=== PATIENT | female | born 1980 | race Caucasian/White ===

== ENCOUNTER → 2021-06-17 10:05 | Outpatient (BNVA) | payer MEDICAID, SELFPAY | PROVIDERS: Visit Provider Family Medicine | DX: E11.9 Type 2 diabetes mellitus without complications (principal); Z87.19 Personal history of other diseases of the digestive system; Z13.6 Encounter for screening for cardiovascular disorders; J44.9 Chronic obstructive pulmonary disease, unspecified; M51.36 Other intervertebral disc degeneration, lumbar region; M54.42 Lumbago with sciatica, left side; M54.41 Lumbago with sciatica, right side; G89.29 Other chronic pain; Z68.33 Body mass index [BMI] 33.0-33.9, adult; F32.3 Major depressive disorder, single episode, severe with psychotic features | CPT/HCPCS: 80053; 80061; 83036 ==

== ENCOUNTER 2021-12-23 20:17 | Emergency (ER) | payer MEDICAID, SELFPAY ==
[2021-12-23 20:30] VITALS: BP 113/84; PULSE 100; RESP 16; TEMP 36.8; O2SAT 98
--- NOTE | 2021-12-23 20:44 | ED.C_ITS ---
HPI - Psych General: Chief Complaint: Psychiatric Symptoms Stated Complaint: MHE Time Seen by Provider: 12/23/21 20:38 [facility] ED PFSH: Medical History (Updated 06/17/21 @ 12:27 by Saadia Horn MD) Insomnia MDD (major depressive disorder), single episode, severe with psychotic features Methamphetamine abuse, episodic Opiate abuse, episodic Psychiatric care Surgical History (Updated 06/17/21 @ 10:50 by Saadia Horn MD) H/O: hysterectomy History of cholecystectomy History of oral surgery History of removal of ovarian cyst History of surgery on wrist Hx of appendectomy Family History (Updated 06/17/21 @ 10:36 by Maribeth Hood LPN) Mother Bleeding disorder Anesthesia complication Cancer lung Psychiatric illness bipolar, depression Stroke Grandmother Diabetes maternal Hypertension Psychiatric illness Grandfather Diabetes maternal Hyperlipidemia Psychiatric illness Stroke maternal and paternal Family/Other Suicide Father Stroke Denies family history of Clotting disorder Social History (Updated 06/17/21 @ 10:38 by Maribeth Hood LPN) Smoking and tobacco status: current every day smoker Alcohol intake: current Alcohol intake frequency: holidays/special occasions only Alcohol type: wine Adopted: No Caregiver/support person: No Lives independently: Yes Household members: significant other and children Female Reproductive History: Date of last menstrual period: 04/19/10 Course Vital Signs: Vital signs: Vital Signs Temperature 98.2 F 12/23/21 20:30 Pulse Rate 100 12/23/21 20:30 Respiratory Rate 16 12/23/21 20:30 Blood Pressure 113/84 12/23/21 20:30 Pulse Oximetry 98 12/23/21 20:30 Discharge Plan Discharge Condition: Stable Prescriptions: No Action propranolol 120 mg capsule,extended release 24 hr 120 mg PO DAILY 30 Days Qty: 30 2RF albuterol sulfate [ProAir HFA] 90 mcg/actuation HFA aerosol inhaler 2 puff inhalation QID PRN (Reason: shortness of breath or wheezing) 30 Days Qty: 18 5RF famotidine 40 mg tablet 40 mg PO DAILY 0RF aripiprazole 5 mg tablet 5 mg PO .qhs 30 Days Qty: 30 3RF venlafaxine 75 mg capsule,extended release 24hr 75 mg PO QAM 30 Days Qty: 30 3RF eszopiclone [Lunesta] 3 mg tablet 3 mg PO .qhs 30 Days Qty: 30 3RF prazosin 2 mg capsule 2 mg PO .qhs 30 Days Qty: 30 3RF Coding 

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
[2021-12-23 21:21] LABS: Basophils # 0.1 10^3/uL (0.0-0.1); Basophils % 0.7 %; Eosinophils # 0.1 10^3/uL (0.0-0.8); Eosinophils % 1.7 %; Hematocrit 41.4 % (37.0-47.0); Hemoglobin 13.8 g/dL (11.5-15.3); Lymphocytes # 3.2 10^3/uL (0.8-4.8); Lymphocytes % 37.6 %; Mean Corpuscular HGB Conc 33.3 g/dL (30.0-36.0); Mean Corpuscular Hemoglobin 29.9 pg (28.0-34.0); Mean Corpuscular Volume 89.6 fl (81-99); Mean Platelet Volume 11.2 fL (7.4-10.4); Monocytes # 0.8 10^3/uL (0.2-0.9); Monocytes % 8.9 %; Neutrophils # 4.29 10^3/uL (1.8-7.7); Neutrophils % 50.7 %; Nucleated Red Blood Cells % 0 %; Platelet Count 321 10^3/cmm (130-400); Red Blood Count 4.62 10^6/uL (4.1-5.3); Red Cell Distribution Width 14.2 % (12.1-15.1); White Blood Count 8.4 10^3/uL (4.0-10.0)
[2021-12-23 21:33] LABS: HCG, Serum Qual Negative (Negative)
[2021-12-23 21:41] LABS: Alanine Aminotransferase 14 U/L (0-33); Albumin Level 4.1 g/dL (3.5-5.2); Alkaline Phosphatase 124 IU/L (35-105); Anion Gap 13.9 (5-19); Aspartate Amino Transferase 13 U/L (0-32); Blood Urea Nitrogen 17 mg/dL (6-20); Calcium 9.3 mg/dL (8.5-10.5); Carbon Dioxide 24 mmol/L (22-29); Chloride 103 mmol/L (98-107); Globulin 3.1 g/dL (1.3-4.6); Glomerular Filtration Rate 69.3 mL/min (90-130); Glucose 86 mg/dL (65-115); Lipase 135 U/L (13-60); Osmolality Calculated 285 mOsm/kg (285-295); Potassium 3.9 mmol/L (3.5-5.1); Sodium 137 mmol/L (136-145); Total Bilirubin 0.2 mg/dL (0.15-1.2); Total Protein 7.2 g/dL (6.6-8.7)
[2021-12-23 21:43] LABS: Acetaminophen < 5.0 ug/mL (10-30); Salicylate < 0.3 mg/dL (3-10)
--- NOTE | 2021-12-23 22:04 | ECG_ITS ---
[facility] Test Date: 2021-12-23 Pat Name: Haydee Mack Department: Room: Gender: Female Applied Statistician: : 1980 Requested By: Balwinder Bailey Order Number: [id number] Elayne MD: Sydney Breaux M.D. Measurements Intervals [place] Rate: 78 P: 41 MS: 183 QRS: 49 QRSD: 86 T: 58 QT: 365 QTc: 416 Interpretive Statements SINUS RHYTHM No previous ECG available for comparison Electronically Signed On 12-25-2021 5:42:16 CDT by Sydney Breaux M.D. [id number]
[2021-12-23 22:14] LABS: Amphetamines Screen Urine Positive (Negative); Barbiturates Screen Urine Negative (Negative); Benzodiazepines Screen Urine Negative (Negative); Cocaine Screen Urine Negative (Negative); Opiate Screen Urine Negative (Negative); PCP Screen Urine Negative (Negative); THC Screen Urine Negative (Negative)
[2021-12-23 22:29] LABS: Thyroid Stimulating Hormone 1.35 uIU/mL (0.27-4.20)
[2021-12-24 00:52] VITALS: BP 93/63; PULSE 66; RESP 17; TEMP 36.4; O2SAT 94
[2021-12-24 03:02] LABS: Adenovirus Not Detected (NOT DETECT); Chlamydia Pneumoniae Not Detected (NOT DETECT); Coronavirus 229E,HKU1,NL63,OC4 Not Detected (NOT DETECT); Human Metapneumovirus Not Detected (NOT DETECT); Human Rhinovirus/Enterovirus Not Detected (NOT DETECT); Influenza A Not Detected (NOT DETECT); Influenza A H1 Not Detected (NOT DETECT); Influenza A H1-2009 Not Detected (NOT DETECT); Influenza A H3 Not Detected (NOT DETECT); Influenza B Not Detected (NOT DETECT); Mycoplasma Pneumoniae Not Detected (NOT DETECT); Parainfluenza Virus Type 1 Not Detected (NOT DETECT); Parainfluenza Virus Type 2 Not Detected (NOT DETECT); Parainfluenza Virus Type 3 Not Detected (NOT DETECT); Parainfluenza Virus Type 4 Not Detected (NOT DETECT); Respiratory Syncytial Virus A Not Detected (NOT DETECT); Respiratory Syncytial Virus B Not Detected (NOT DETECT); SARS-COV-2 Not Detected (NOT DETECT)
[2021-12-24] MEDS: nicotine 21 mg Patch 1 PATCH TRANSDERMA (06:29)
[2021-12-24 06:33] VITALS: BP 106/74; PULSE 78; RESP 18; TEMP 36.7; O2SAT 97
--- NOTE | 2021-12-24 07:12 | PC.NURSE ---
WHILE AT BEDSIDE PT IS RESTING QIUETLY WITH EYES CLOSED SUPINE IN CHAIR WITH SITTER AT BEDSIDE.
--- NOTE | 2021-12-24 07:43 | PC.NURSE ---
ATTEMPTED TO CHANGE PT INTO SCRUBS PT REFUSES UNTIL SHE TALKS WITH . WITH CODE BLUE WILL ATTEMPT AGAIN AFTER SPEAKS WITH PT.
--- NOTE | 2021-12-24 08:09 | PC.NURSE ---
PAULINO CENTENO CHANGING PT INTO SCRUBS AND TAKING POSSESSION OF BELONGINGS.
--- NOTE | 2021-12-24 08:25 | PC.NURSE ---
report given to jannie broussard rn at [facility] in [place].
--- NOTE | 2021-12-24 09:05 | PC.NURSE ---
report given to dali with [facility]. assumed care.
--- NOTE | 2021-12-24 09:07 | PC.NURSE ---
report given to dali with [facility]. assumed care.
[2021-12-24 09:08] VITALS: BP 102/70; PULSE 75; RESP 16; O2SAT 97
== END 2021-12-24 09:10 ==
PROVIDERS: Emergency Provider Emergency Medicine
DX: F32.A Depression, unspecified (principal); R45.81 Low self-esteem; F17.200 Nicotine dependence, unspecified, uncomplicated
CPT/HCPCS: 80053; 80306; 80307; 83690; 84439; 84443; 84703; 85025; 87635; 93005; 99285